=== PATIENT | male | born 1970 | race Caucasian/White ===

== ENCOUNTER 2023-10-13 13:31 | Day surgery (SDC) | payer BC, SELFPAY ==
[2023-10-13] VITALS (10 sets, daily range): BP systolic 102–135; BP diastolic 64–82; BMI 27.6
--- NOTE | 2023-10-13 13:32 | HPS.HSE ---
Family Physician
-
Family Physician: Elsy Kramer PA-C
[facility]: Miya Wolfe MD
Chief Complaint
-
Chest pain/Abnormal stress Echo
History of Present Illness
53 yo WM h/o hyperlipidemia who has been having exertional chest tightness with some associated dyspnea saw cardiology on 08/30/23 (Dr. Wolfe) who ordered a SE which was abnormal. He had cath at 10/[address] Ibarra revealing 99% proximal LAD
stenosis. He is transferred today for high risk PCI LAD.
Medical History
Past Medical History
Past Medical History: Reports Hypercholesterolemia and Other (COVID 2020, Left shoulder impingement)
Past Surgical History: Reports Other (oral surgery)
Social History
Tobacco: Non-smoker
Alcohol: Daily (1-4 drinks several days/week)
Drug: None
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
Family History
Family History: Other (Father - CVA, HLD)
Allergies / Home Medications
Allergies reflects when Allergies were last updated in [facility].
Home Medications with original date entered in [facility]
Allergy/Medication List:
Allergies
Allergy/AdvReac Type Severity Reaction Status Date / Time
codeine Allergy Mild Itching Verified 10/13/23 13:32
codeine phosphate Allergy Unknown Uncoded 10/13/23 13:41
Medication Instructions Recorded Confirmed Type
aspirin 81 mg chewable tablet 81 mg PO DAILY 10/13/23 10/13/23 History
metoprolol succinate 25 mg 25 mg PO DAILY 10/13/23 10/13/23 History
tablet,extended release 24 hr
(Toprol XL)
rosuvastatin 20 mg tablet 20 mg PO DAILY 10/13/23 10/13/23 History
Review of Systems
-
Constitutional: Reports No Symptoms
Respiratory: Reports No Symptoms
Cardiac: Reports No Symptoms
Abdomen/GI: Reports No Symptoms
: Reports No Symptoms
Endocrine: Reports No Symptoms
Psych: Reports No Symptoms
Physical Exam
Physical Exam
General: Well Developed and Well Nourished
Respiratory: Clear
Cardiac: S1/S2 and Regular Rhythm
GI: Soft and Non Tender
Skin: Warm and Dry
Neuro: AO x 3
Impression/Plan
-
Family Physician: Elsy Kramer PA-C
[facility]: Miya Wolfe MD
IMPRESSION:
Unstable angina
CAD by cath 10/12/23 99% LAD stenosis
hyperlipidemia
L shoulder joint impingement
Daily ETOH
PLAN:
Admit IVU post PCI LAD
DAPT was loaded 10/11 with Plavix 600mg, give 75mg Plavix now
continue toprol xl 25mg
Check CVE, continue rosuvastatin
Cardiac rehab c/s
reinforced importance of ETOH cessation
f/u Dr. Wolfe 2-4 weeks
[2023-10-13] MEDS: PLAVIX 75 MG PO (13:47)
[2023-10-13 14:18] LABS: ACT-LR - POC 366 Seconds (116-155)
[2023-10-13 14:47] LABS: ACT-LR - POC > 397 Seconds (116-155)
--- NOTE | 2023-10-13 15:09 | ITS.CL.ANGIO ---
State Manager - Angioplasty
Angioplasty
Procedure Report:
LEFT HEART CATHETERIZATION/PCI report.
Informed consent was obtained in the holding area after the risks, the benefits, the possible outcomes of the procedure were explained. Patient understands that this is a high risk procedure carrying the increased risk of morbidity and mortality.
After the detail explanation, the patient agreed to proceed.
Date of Procedure: 10/13/2023
Procedures performed:
1: Coronary angiography
2: PCI to the LAD with SHARIFA x 1
3: Conscious sedation
Primary Care Physician: Unknown
Primary Circulation Worker: Miya Wolfe MD
INDICATION: Unstable angina
ACCESS: The patient was prepped and draped in usual sterile fashion. A 6 Serbian sheath was placed in the right radial artery using the Seldinger over the wire technique. 10,000 units of heparin was given for anticoagulation.
Coronary Angiography: This was a planned, staged, PCI to the LAD. Patient has a known 99% lesion LAD with IRON II flow.
Percutaneous Coronary Intervention (PCI): Using an EBU 3.0 guiding catheter, left main coronary artery was engaged. Using a run-through wire, we attempted to cross the LAD occlusion. The run-through wire did not cross. We then proceeded to place
the run-through wire in the diagonal branch.
Using a Hi-Torque floppy wire, were finally able to cross the 99% LAD lesion. We first used a 1.5 x 10 Euphora balloon to predilate the lesion. Was subsequently used a 2.0 x 15 mm Euphora compliant balloon. After adequate predilatation, the
lesion was stented using a 2.5 x 30 mm drug-eluting stent. [place] drug-eluting stent was used.
Post stent deployment, there is dissection or perforation with IRON-3 flow in the LAD.
FINAL RESULT: Successful PCI with SHARIFA x 1 to the LAD. Orthodoxy of IRON-3 flow.
DAP: 58.9211 Gycm2
Fluoro time: 13.8 min
Contrast: 100ccs
Impression:
1. Successful PCI with SHARIFA to LAD.
Plan:
Continue asa 81mg daily x lifetime.
Plavix 75mg daily for at least 1 year.
--- NOTE | 2023-10-13 16:26 | W.PN.UPDATE ---
Update Note
Progress Note Update
53 yo WM s/p PCI LAD (same day). He feels good, no cp, sob, saad diet, voiding, amb w/o dizziness. R rad site c/d/i no HT, soft. EKG SB no ST changes. He will be on DAPT ASA/Plavix. He will continue statin, and metoprolol. We will add PPI. Cardiac
rehab c/s. Activity restrictions reviewed. He will f/u Dr. Ibarra tomorrow at 430pm in the office. He is for d/c home after 715pm if rad site stable.
Impression:
1. Successful PCI with SHARIFA to LAD.
Plan:
Continue asa 81mg daily x lifetime.
Plavix 75mg daily for at least 1 year.
--- NOTE | 2023-10-13 19:05 | PTCARENOTE ---
DR LUCAS AWARE OF PROCEDURAL SITE SWELLING. RADIAL BAND PLACED SUPERIOR TO PREVIOUS BAND WITH 12CC AIR PLACED AND TO REMAIN ON FOR [address] LUCAS.
== END 2023-10-13 19:58 | disposition home or self-care (01) ==
LOC: CATH 13:31
PROVIDERS: ATTENDING PHYSICIAN Internal Medicine Cardiovascular Disease; FAMILY PHYSICIAN Physician Assistant
DX: I25.110 Atherosclerotic heart disease of native coronary artery with unstable angina pectoris (principal); E78.5 Hyperlipidemia, unspecified; Z86.16 Personal history of COVID-19; E78.00 Pure hypercholesterolemia, unspecified; Z88.6 Allergy status to analgesic agent; Z79.82 Long term (current) use of aspirin; Z79.02 Long term (current) use of antithrombotics/antiplatelets; M25.819 Other specified joint disorders, unspecified shoulder; Z82.3 Family history of stroke; Z88.5 Allergy status to narcotic agent
CPT/HCPCS: 85347; 93005; C1725; C1769; C1874; C1887; C1894; C9600; Q9967